=== PATIENT | female | born 1970 | race Caucasian/White ===

== ENCOUNTER 2023-11-01 12:05 | Emergency (ER) | payer SELFPAY ==
[~2023-11-01] VITALS: Ht 170.2 cm; Wt 81.9 kg
[2023-11-01 12:14] VITALS: BP 119/83; RESP 18; TEMP 98.5
[2023-11-01 12:45] LABS: APPEARANCE,URINE CLEAR (CLEAR); BILIRUBIN,URINE NEGATIVE (NEGATIVE); BLOOD, URINE NEGATIVE (NEGATIVE); COLOR,URINE YELLOW (YELLOW); LEUKOCYTE ESTERASE ,URINE NEGATIVE (NEGATIVE); NITRITE, URINE NEGATIVE (NEGATIVE); PROTEIN,URINE NEGATIVE (NEGATIVE); UGLUCOSE NEGATIVE (NEGATIVE); UROBILINOGEN,URINE 0.2 EU/dL (0.2 - 1)
[2023-11-01] MEDS ORDERED: ALBU0.0912 INH (13:09)
[2023-11-01] MEDS ORDERED: DOXY-690 PO (13:09)
[2023-11-01] MEDS ORDERED: OMEP20EC11 PO (13:09)
[2023-11-01] MEDS ORDERED: ACET-10509 PO (13:09)
[2023-11-01] MEDS ORDERED: cefTRIAXone 500 MG VIAL ONE (13:10)
[2023-11-01] MEDS ORDERED: LIDOCAINE MPF 1% 5 ML ONE (13:10)
[2023-11-01] MEDS: cefTRIAXone 500 MG in LIDOCAINE MPF 1% 1 ML IM ONE (13:14)
== END 2023-11-01 13:18 | disposition home or self-care (01) ==
LOC: MED 12:05
DX: Z11.3 Encounter for screening for infections with a predominantly sexual mode of transmission (principal); N76.0 Acute vaginitis; Z79.899 Other long term (current) drug therapy
CPT/HCPCS: 81003; 87491; 96372; 99283; J0696; J2001

== ENCOUNTER 2023-11-13 14:19 | Emergency (ER) | payer SELFPAY ==
[~2023-11-13] VITALS: Ht 170.2 cm; Wt 83.5 kg
[~2023-11-13 14:19] MED LIST: ACET-10509 PO; ALBU0.0912 INH; DOXY-690 PO; OMEP20EC11 PO
[2023-11-13 14:47] VITALS: BP 124/80; PULSE 64; RESP 20; TEMP 97.5; O2SAT 95
[2023-11-13 15:52] LABS: APPEARANCE,URINE CLEAR (CLEAR); BILIRUBIN,URINE NEGATIVE (NEGATIVE); BLOOD, URINE NEGATIVE (NEGATIVE); COLOR,URINE YELLOW (YELLOW); LEUKOCYTE ESTERASE ,URINE NEGATIVE (NEGATIVE); NITRITE, URINE NEGATIVE (NEGATIVE); PROTEIN,URINE NEGATIVE (NEGATIVE); UGLUCOSE NEGATIVE (NEGATIVE); UROBILINOGEN,URINE 0.2 EU/dL (0.2 - 1)
[2023-11-13] MEDS ORDERED: BENZ100C6 PO (16:05)
[2023-11-13] MEDS ORDERED: VIB100 PO (16:05)
[2023-11-13] MEDS ORDERED: cefTRIAXone 500 MG VIAL ONE (16:07)
[2023-11-13] MEDS ORDERED: LIDOCAINE MPF 1% 5 ML ONE (16:08)
[2023-11-13] MEDS: cefTRIAXone 500 MG in LIDOCAINE MPF 1% 1 ML IM ONE (16:14)
== END 2023-11-13 16:16 | disposition home or self-care (01) ==
LOC: MED 14:19
DX: N76.0 Acute vaginitis (principal); B96.89 Other specified bacterial agents as the cause of diseases classified elsewhere; A74.9 Chlamydial infection, unspecified; R05.9 Cough, unspecified; Z79.899 Other long term (current) drug therapy
CPT/HCPCS: 81003; 81025; 87491; 96372; 99283; J0696; J2001

== ENCOUNTER 2024-05-13 08:15 | Emergency (ER) | payer MEDICAID ==
[~2024-05-13] VITALS: Ht 167.6 cm; Wt 68.0 kg
[~2024-05-13 08:15] MED LIST changes: -ACET-10509 PO; +ACET500T99 PO; +BENZ100C6 PO; +VIB100 PO
[2024-05-13 08:19] VITALS: BP 131/80; PULSE 89; RESP 16; TEMP 97.1; O2SAT 99
[2024-05-13] MEDS ORDERED: HYDR25SU91 RC (08:53)
[2024-05-13 09:13] VITALS: BP 131/80; PULSE 89; RESP 16; TEMP 97.1; O2SAT 99
== END 2024-05-13 09:13 | disposition home or self-care (01) ==
LOC: MED 08:15
DX: K64.4 Residual hemorrhoidal skin tags (principal); R03.0 Elevated blood-pressure reading, without diagnosis of hypertension; J45.909 Unspecified asthma, uncomplicated; Z79.899 Other long term (current) drug therapy
CPT/HCPCS: 99283